=== PATIENT | male | born 1985 | race Caucasian/White ===

== ENCOUNTER 2017-02-11 09:08 | Emergency (ER) | payer OTHER ==
--- NOTE | 2017-02-11 09:53 | ED Physician Documentation ---
PD HPI URI - Stated complaint Stated Complaint: FEVER - Chief complaint Chief Complaint: Resp - History obtained from History obtained from: Patient - History of Present Illness Timing - onset: How many days ago (4-5) Timing duration: Days Timing details: Abrupt onset (onset of fever, malaise, cough, and congestion, which has persisted and worsened.), Still present Associated symptoms: Fever, Chills, Nasal congestion, Dry cough, Chest pain ( hurts anteriorly with deep coughing), Dyspnea. No: Sore throat Contributing factors: Sick contact ( and son with some cough and congestion a week prior but lasted just few days and not too ill.). No: Travel, COPD / asthma Improves by: Rest Worsened by: Activity, Breathing Similar symptoms before: Has not had sx before Recently seen: Not recently seen Review of Systems Constitutional: reports: Fever (to 103 at home), Chills, Myalgias Nose: reports: Congestion, Sinus pressure / pain. denies: Rhinorrhea / runny nose Throat: denies: Sore throat Cardiac: reports: Chest pain / pressure (with coughing). denies: Palpitations, Pedal edema, Calf pain Respiratory: reports: Dyspnea, Cough, Wheezing GI: reports: Nausea, Vomiting. denies: Diarrhea Neurologic: denies: Near syncope (but is feeling lightheaded with standing and walking today. He is tachycardic.) PD PAST MEDICAL HISTORY - Past Medical History Cardiovascular: None Respiratory: None Neuro: None Endocrine/Autoimmune: None GI: Other - Past Surgical History Past Surgical History: Yes General: Cholecystectomy, Appendectomy, Other Ortho: Other HEENT: Rhinoplasty, Other - Present Medications Home Medications: Ambulatory Orders Medication Instructions Recorded Confirmed Albuterol Sulf [Ventolin Hfa 1 - 2 puffs INH Q4HR PRN #1 inhaler 02/11/17 Inhaler] Azithromycin [Zithromax] 250 mg PO DAILY #6 tablet 02/11/17 Dexamethasone [Decadron] 4 mg PO DAILY #5 tablet 02/11/17 HYDROcod/ACETAM 5/325 [Wray 5/325] 1 tab PO Q6H PRN #15 tablet 02/11/17 Lidocaine Viscous 2% [Xylocaine 5 ml PO Q4H PRN #1 bottle 02/11/17 Viscous 2%] Ondansetron Odt [Zofran] 4 mg TL Q6H PRN #15 tablet 02/11/17 - Allergies Allergies/Adverse Reactions: Allergies Allergy/AdvReac Type Severity Reaction Status Date / Time No Known Drug Allergies Allergy Verified 12/30/15 17:08 - Social History Does the pt smoke?: Yes Smoking Status: Current every day smoker Does the pt drink ETOH?: No Does the pt have substance abuse?: No - Immunizations Immunizations are current?: Yes PD ED PE NORMAL - Vitals Vital signs reviewed: Yes - General General: Alert and oriented X 3, No acute distress, Well developed/nourished - HEENT HEENT: Pharynx benign - Neck Neck: Supple, no meningeal sign, No adenopathy - Cardiac Cardiac: RRR, No murmur, No rub - Respiratory Respiratory: Clear bilaterally (no coarse sounds nor wheezes heard) - Abdomen Abdomen: Soft, Non tender - Back Back: No CVA TTP - Derm Derm: Normal color, Warm and dry - Neuro Neuro: Alert and oriented X 3, No motor deficit, No sensory deficit, Normal speech Results - Vitals Vitals: Vital Signs - 24 hr 02/11/17 02/11/17 02/11/17 09:17 09:19 10:00 Temperature 36.7 C Heart Rate 120 H 108 H Respiratory 20 20 Rate Blood Pressure 130/90 H O2 Saturation 94 02/11/17 12:40 Temperature 37.6 C H Heart Rate 108 H Respiratory 18 Rate Blood Pressure 115/70 O2 Saturation 95 Oxygen O2 Source Room air - Rads (name of study) chest Radiology: Prelim report reviewed (mild small infiltrate left base c/w early pneumonia. ) PD MEDICAL DECISION MAKING - ED course Complexity details: considered differential (he did seem dehydrated with illness , fever, and poor PO intake due to illness. Given IV fluids and meds and he feels much better.), d/w patient Departure - Departure Disposition: 01 Home, Self Care Clinical Impression: Bronchitis, Dehydration Pneumonia Qualifiers: Pneumonia type: due to unspecified organism Laterality: left Lung location: lower lobe of lung Qualified Code(s): J18.1 - Lobar pneumonia, unspecified organism Condition: Stable Record reviewed to determine appropriate education?: Yes Instructions: ED Pneumonia Adult Follow-Up: [facility] [Provider Group] Prescriptions: Albuterol Sulf [Ventolin Hfa Inhaler] 1 - 2 puffs INH Q4HR PRN #1 inhaler PRN Reason: Shortness Of Air/Wheezing Azithromycin [Zithromax] 250 mg PO DAILY #6 tablet Dexamethasone [Decadron] 4 mg PO DAILY #5 tablet HYDROcod/ACETAM 5/325 [Wray 5/325] 1 tab PO Q6H PRN #15 tablet PRN Reason: Pain Lidocaine Viscous 2% [Xylocaine Viscous 2%] 5 ml PO Q4H PRN #1 bottle PRN Reason: Pain Ondansetron Odt [Zofran] 4 mg TL Q6H PRN #15 tablet PRN Reason: Nausea / Vomiting Comments: Drink lots of fluids. Tylenol or ibuprofen if needed for pains and fevers. Use the oral lidocaine with some antacid if needed for cough and irritation in the throat. Use hydrocodone if needed for pain or cough suppression. For the illness itself, use the albuterol inhaler 2 puffs 4 times a day for the next 7- 10 days which will reduce the coughing and improve breathing. Decadron steroid and anti-inflammatory daily for 5 more days. This often can be a viral type illness. On x-ray there was 6 suggestion of early pneumonia on the left lower area. This does have a higher chance of being bacterial and so we will add antibiotics as well Zithromax daily for 5 more days. Recheck if not improving over the next several days to week. Discharge Date/Time: 02/11/17 13:23
[2017-02-11] MEDS ORDERED: SODIUM CHLORIDE 0.9% 1,000 ML IV ONE ×2 (10:18→10:20)
[2017-02-11] MEDS ORDERED: DEXAMETHASONE 10 MG/ML VIAL IVP STA (10:19)
[2017-02-11] MEDS ORDERED: HYDROmorphone 0.5 MG/0.5 ML SYRINGE IVP STA ×2 (10:19→12:52)
[2017-02-11] MEDS ORDERED: LIDOCAINE VISCOUS 2% 15 ML UDC MM STA (10:19)
[2017-02-11] MEDS ORDERED: ONDANSETRON 4 MG/2 ML VIAL IVP STA (10:19)
[2017-02-11] MEDS ORDERED: MAG HYDROX/AL HYDROX/SIMETH 30 ML UDC PO STA (10:19)
--- NOTE | 2017-02-11 10:48 | XRAY Preliminary Report ---
Exam: XR CHEST 2 VIEW PA/LAT IMPRESSION: Findings reflect early/developing pneumonia in the left lower lobe. [facility] SITE ID: [id number]
--- NOTE | 2017-02-11 10:51 | XRAY Report ---
EXAM: CHEST RADIOGRAPHY EXAM DATE: 02/11/2017 10:32 AM. CLINICAL HISTORY: Cough and fever for 4 days. COMPARISON: None. TECHNIQUE: 2 views. FINDINGS: Lungs/Pleura: Mild patchy and reticular left basilar opacities. No focal right consolidation. No pneu mothorax or pleural effusion. Mediastinum: Heart and mediastinal contours are unremarkable. Other: Cholecystectomy clips. IMPRESSION: Findings reflect early/developing pneumonia in the left lower lobe. [facility] Referring Provider Line: [phone] SITE ID: [id number]
[2017-02-11] MEDS ORDERED: DEXAMETHASONE 10 MG/ML VIAL ONE (10:55)
[2017-02-11] MEDS ORDERED: AZITHROMYCIN INJ 500 MG in SODIUM CHLORIDE 0.9% 250 ML IV STA (10:55)
[2017-02-11] MEDS ORDERED: ONDANSETRON 4 MG/2 ML VIAL ONE (10:56)
[2017-02-11] MEDS ORDERED: LIDOCAINE VISCOUS 2% 15 ML UDC MM ONE (10:56)
[2017-02-11] MEDS ORDERED: MAG HYDROX/AL HYDROX/SIMETH 30 ML UDC ONE (10:56)
[2017-02-11] MEDS ORDERED: HYDROmorphone 1 MG/ML SYRINGE ONE ×2 (10:57→13:02)
[2017-02-11] MEDS ORDERED: WATER FOR INJECTION,STERILE 10 ML ONE (11:43)
[2017-02-11 12:43] VITALS: BP 115/70
== END 2017-02-11 13:23 | disposition home or self-care (01) ==
LOC: ED 09:08
DX: J40 Bronchitis, not specified as acute or chronic (principal); E86.0 Dehydration; F17.200 Nicotine dependence, unspecified, uncomplicated
CPT/HCPCS: 71020; 96361; 96374; 96375; 96376; 99283; 99284

== ENCOUNTER 2017-05-20 09:11 | Emergency (ER) | payer OTHER ==
[2017-05-20 09:23] VITALS: BP 128/93
--- NOTE | 2017-05-20 10:54 | XRAY Report ---
EXAM: LEFT FOOT RADIOGRAPHY EXAM DATE: 05/20/2017 10:44 AM. CLINICAL HISTORY: Left foot pain. COMPARISON: None. TECHNIQUE: 3 views. FINDINGS: Bones: No fracture or focal osseous lesion. Minimal plantar and dorsal calcaneal spurring. Joints: Normal. No subluxations. Soft Tissues: Possible plantar soft tissue swelling. No radiopaque foreign body. IMPRESSION: No acute osseous abnormality. [facility] Referring Provider Line: [phone] SITE ID: [id number]
[2017-05-20] MEDS ORDERED: INDOMETHACIN 25 MG CAPSULE PO STA (11:25)
--- NOTE | 2017-05-20 11:35 | ED Physician Documentation ---
History of Present Illness - Stated complaint Stated Complaint: L FOOT PX - Chief complaint Chief Complaint: Ext Problem - Additonal information Additional information: hx from pt 31 male long standing foot pain to forefoot worse in AM affects whichever foot was down while he was sleeping painful to bear weight - top of foot not arch like plantar fascitis no redness or swelling is [facility] and cannot be seen for a month states his HR is always fast and [facility] is aware and rx BB but cause is uncertain Review of Systems Constitutional: denies: Fever Musculoskeletal: reports: Pain with weight bearing PD PAST MEDICAL HISTORY - Past Medical History Past Medical History: Yes Cardiovascular: None Respiratory: None Neuro: None Endocrine/Autoimmune: None GI: GERD - Past Surgical History Past Surgical History: Yes General: Cholecystectomy, Appendectomy, Other Ortho: Other HEENT: Rhinoplasty, Other - Present Medications Home Medications: Ambulatory Orders Medication Instructions Recorded Confirmed Indomethacin [Indocin] 25 mg PO TIDWM PRN #20 capsule 05/20/17 - Allergies Allergies/Adverse Reactions: Allergies Allergy/AdvReac Type Severity Reaction Status Date / Time No Known Drug Allergies Allergy Verified 12/30/15 17:08 - Social History Does the pt smoke?: Yes Smoking Status: Current every day smoker Does the pt drink ETOH?: No Does the pt have substance abuse?: No - Immunizations Immunizations are current?: Yes PD ED PE NORMAL - Vitals Vital signs reviewed: Yes (HR 107 not new per pt) - Cardiac Cardiac: RRR - Respiratory Respiratory: No respiratory distress, Clear bilaterally - Extremities Extremities: Other (foot : no deformity, no erythema, no swelling, + motor and sensation, + pulse and cap refill) Results - Vitals Vitals: Vital Signs - 24 hr 05/20/17 05/20/17 09:20 10:48 Temperature 36.4 C L Heart Rate 107 H 99 Respiratory 18 14 Rate Blood Pressure 128/93 H O2 Saturation 100 96 Oxygen O2 Source Room air - Rads (name of study) foot Radiology: See rad report (no acute) Departure - Departure Disposition: 01 Home, Self Care Clinical Impression: Foot pain Qualifiers: Laterality: bilateral Qualified Code(s): M79.671 - Pain in right foot; M79.672 - Pain in left foot; M79.672 - Pain in left foot Condition: Good Prescriptions: Indomethacin [Indocin] 25 mg PO TIDWM PRN #20 capsule PRN Reason: Pain Comments: The xray is fine The foot does not look infected or like gout There is good blood flow You do not have medical problems to put you at risk for neuropathy This is not typical of plantar fasciitis. I am not really sure why it hurts I recommend you see a game artist It is also not normal to have a fast heart rate every day - I would recommend a work up to include thyroid function, a wear at home heart monitor and an ultrasound of your heart Try the indocin for pain [facility] with [facility]
== END 2017-05-20 11:48 | disposition home or self-care (01) ==
LOC: ED 09:11
DX: M79.671 Pain in right foot (principal); M79.672 Pain in left foot
CPT/HCPCS: 73630; 99283; A9270

== ENCOUNTER 2017-06-10 09:26 | Emergency (ER) | payer OTHER ==
[2017-06-10 09:40] VITALS: BP 141/89
[2017-06-10] MEDS ORDERED: BENZONATATE 100 MG CAPSULE PO STA (12:10)
[2017-06-10] MEDS ORDERED: guaiFENesin/CODEINE 5 ML UDC PO STA (12:10)
--- NOTE | 2017-06-10 12:23 | XRAY Report ---
EXAM: CHEST RADIOGRAPHY EXAM DATE: 06/10/2017 12:14 PM. CLINICAL HISTORY: Cough and high fever for several days. COMPARISON: Chest x-ray 02/11/2017. TECHNIQUE: 2 views. FINDINGS: Lungs/Pleura: No focal consolidation evident. No pleural effusion. No pneumothorax. Mildly diminished lung volumes. Peribronchial cuffing. Mediastinum: Heart and mediastinal contours are unremarkable. Other: None. IMPRESSION: 1. Peribronchial cuffing is noted, compatible with reactive airways disease or viral bronchitis. 2. No focal consolidation. 3. Prior left lower lobe airspace disease has resolved. [facility] Referring Provider Line: [phone] SITE ID: [id number]
--- NOTE | 2017-06-10 12:23 | XRAY Preliminary Report ---
Exam: XR CHEST 2 VIEW X-RAY IMPRESSION: 1. Peribronchial cuffing is noted, compatible with reactive airways disease or viral bronchitis. 2. No focal consolidation. 3. Prior left lower lobe airspace disease has resolved. [facility] SITE ID: [id number]
--- NOTE | 2017-06-10 13:09 | ED Physician Documentation ---
History of Present Illness - Stated complaint Stated Complaint: FLU LIKE SX - Chief complaint Chief Complaint: General - Additonal information Additional information: hx from pt 31 male fairly healthy to ER with 4-5 days of cough congestion pleuritic chest pain NVD daughter with same called PMD which is the [facility] but cannot be seen for 61 days his MDI is run out Review of Systems Constitutional: reports: Chills, Myalgias, Fatigue Nose: reports: Congestion Cardiac: reports: Chest pain / pressure Respiratory: reports: Cough GI: reports: Vomiting, Diarrhea Immunocompromised: denies: Immunocompromised PD PAST MEDICAL HISTORY - Past Medical History Cardiovascular: None Respiratory: None Neuro: None Endocrine/Autoimmune: None GI: GERD - Past Surgical History Past Surgical History: Yes General: Cholecystectomy, Appendectomy, Other Ortho: Other HEENT: Rhinoplasty, Other - Present Medications Home Medications: Ambulatory Orders Medication Instructions Recorded Confirmed Indomethacin [Indocin] 25 mg PO TIDWM PRN #20 capsule 05/20/17 Albuterol Sulfate [Proair Hfa 2 puffs INH Q4H PRN #1 inhaler 06/10/17 Inhaler] Benzonatate [Tessalon] 100 mg PO TID PRN #20 capsule 06/10/17 Ibuprofen [Motrin] 400 mg PO Q6H PRN #30 tablet 06/10/17 guaiFENesin/DEXTROMETHORPHAN 10 ml PO Q6H PRN #120 ml 06/10/17 [Robitussin Dm] - Allergies Allergies/Adverse Reactions: Allergies Allergy/AdvReac Type Severity Reaction Status Date / Time No Known Drug Allergies Allergy Verified 12/30/15 17:08 - Social History Does the pt smoke?: Yes Smoking Status: Current every day smoker Does the pt drink ETOH?: No Does the pt have substance abuse?: No - Immunizations Immunizations are current?: Yes PD ED PE NORMAL - Vitals Vital signs reviewed: Yes - General General: Alert and oriented X 3 - HEENT HEENT: PERRL, Ears normal, Moist mucous membranes, Pharynx benign - Neck Neck: Supple, no meningeal sign - Cardiac Cardiac: RRR - Respiratory Respiratory: Other (ronchi and coarse breath sounds bilaterally) - Abdomen Abdomen: Soft, Non tender - Derm Derm: Normal color - Neuro Neuro: Alert and oriented X 3 Results - Vitals Vitals: Vital Signs - 24 hr 06/10/17 09:38 Temperature 36.7 C Heart Rate 92 Respiratory 17 Rate Blood Pressure 141/89 H O2 Saturation 98 Oxygen O2 Source Room air - Labs Labs: Laboratory Tests 06/10/17 11:45 Influenza A (Rapid) Negative Influenza B (Rapid) Negative Influenza Types A,B Ag - - Rads (name of study) CXR Radiology: See rad report (peribronchial cuffing c/w viral process or RAD, no focal consolidation, prior pna resolved) PD MEDICAL DECISION MAKING - ED course ED course: daughter flu A + so presume pt has the same outside window for tamiflu will tx symptomatically Departure - Departure Disposition: Home, Self Care Clinical Impression: Influenza A Condition: Good Instructions: ED Flu Prescriptions: Albuterol Sulfate [Proair Hfa Inhaler] 2 puffs INH Q4H PRN #1 inhaler PRN Reason: Shortness Of Air/Wheezing Benzonatate [Tessalon] 100 mg PO TID PRN #20 capsule PRN Reason: to ease cough guaiFENesin/DEXTROMETHORPHAN [Robitussin Dm] 10 ml PO Q6H PRN #120 ml PRN Reason: Cough Ibuprofen [Motrin] 400 mg PO Q6H PRN #30 tablet PRN Reason: Pain Comments: Your flu swabs were negative - but Manny was positive for influenza A The chest xray does not show pneumonia So the treatment is primarily conservative - motrin and tylenol for fever and pain, cough meds, I refilled your inhaler The biggest danger with influenza is developing a secondary infection such as pneumonia - thankfully that has not happened at this time - but if you are worse in any way, please come back to the ER Forms: Activity restrictions
== END 2017-06-10 13:37 | disposition home or self-care (01) ==
LOC: ED 09:26
DX: J09.X2 Influenza due to identified novel influenza A virus with other respiratory manifestations (principal); F17.200 Nicotine dependence, unspecified, uncomplicated
CPT/HCPCS: 71046; 87275; 87276; 99283; A9270

== ENCOUNTER 2018-03-09 09:11 | Emergency (ER) | payer OTHER ==
[2018-03-09] MEDS ORDERED: ACETAMINOPHEN 500 MG TABLET PO STA (11:03)
--- NOTE | 2018-03-09 11:06 | ED Physician Documentation ---
PD HPI SYNCOPE - Stated complaint Stated Complaint: GLF/HEAD INJURY - Chief complaint Chief Complaint: Neuro - History obtained from History obtained from: Patient, Family - History of Present Illness Witnessed: Witnessed Timing - onset: Today Duration: Seconds Preceding symptoms: Vision changes, Light headed, Generalized weakness, Other (central chest pressure.) Associated symptoms: Headache, Vision changes, Chest pain. No: Seizure Contributing factors: Decreased PO intake Injury occurred: Fell, Head injury Similar symptoms before: No diagnosis Recently seen: Not recently seen - Additional information Additional information: 32-year-old male who has had a recent URI that is resolved is now developed syncope while at the grocery store. He states that he was standing at the check out felt a pressure in the central portion of his chest some dimming of his vision and he had a syncopal episode falling and hitting his head. His happened yesterday and he is in here today with some nausea and a headache. He states that he has had these syncopal episodes 5 times previously none of them have been in a public area and he has attributed these to not eating properly. He has had these 5 episodes in the last 6 months. Review of Systems Constitutional: denies: Fever, Chills, Myalgias, Fatigue Eyes: reports: Photophobia. denies: Decreased vision Ears: denies: Ear pain Nose: reports: Congestion. denies: Rhinorrhea / runny nose Throat: denies: Sore throat Cardiac: reports: Chest pain / pressure. denies: Palpitations, Pedal edema, Calf pain Respiratory: denies: Dyspnea, Cough, Wheezing GI: reports: Nausea. denies: Abdominal Pain, Vomiting : denies: Dysuria, Frequency Skin: denies: Rash Musculoskeletal: denies: Neck pain, Back pain, Extremity pain Neurologic: reports: Syncope, Headache, Head injury, LOC. denies: Generalized weakness, Focal weakness, Numbness PD PAST MEDICAL HISTORY - Past Medical History Past Medical History: Yes Cardiovascular: None Respiratory: None Endocrine/Autoimmune: None GI: GERD - Past Surgical History Past Surgical History: Yes General: Cholecystectomy, Appendectomy, Other Ortho: Other HEENT: Rhinoplasty, Other - Present Medications Home Medications: Ambulatory Orders Medication Instructions Recorded Confirmed Amox/Clav 875/125 [Augmentin] 1 each PO Q12H #28 tablet 03/09/18 - Allergies Allergies/Adverse Reactions: Allergies Allergy/AdvReac Type Severity Reaction Status Date / Time No Known Drug Allergies Allergy Verified 03/09/18 10:17 - Social History Does the pt smoke?: Yes Smoking Status: Current every day smoker Does the pt drink ETOH?: No Does the pt have substance abuse?: No - Immunizations Immunizations are current?: Yes PD ED PE NORMAL - Vitals Vital signs reviewed: Yes (hypertensive ) - General General: Alert and oriented X 3, No acute distress, Well developed/nourished - HEENT HEENT: PERRL, EOMI, Pharynx benign, Dentition benign, Other (minimal inflamation to the left TM with retained landmarks. There is point tenderness to the occiput on the right side. ) - Neck Neck: Supple, no meningeal sign, No bony TTP - Cardiac Cardiac: RRR, No murmur - Respiratory Respiratory: No respiratory distress, Clear bilaterally - Abdomen Abdomen: Soft, Non tender - Back Back: No CVA TTP, No spinal TTP - Derm Derm: Normal color, Warm and dry, No rash - Extremities Extremities: No deformity, No edema - Neuro Neuro: Alert and oriented X 3, lead applier 2-12 intact, No motor deficit, No sensory deficit, Normal speech Eye Opening: Spontaneous Motor: Obeys Commands Verbal: Oriented GCS Score: 15 - Psych Psych: Normal mood, Normal affect Results - Vitals Vitals: Vital Signs - 24 hr 03/09/18 03/09/18 09:40 12:31 Temperature 36.4 C L Heart Rate 77 83 Respiratory 18 18 Rate Blood Pressure 149/98 H 103/87 H O2 Saturation 98 97 Oxygen O2 Source Room air - EKG (time done) 0958 Rate: Rate (enter#) Rhythm: NSR (64) Ischemia: Normal ST segments Compare to prior EKG: Old EKG unavailable Computer interpretation: Agree with computer - Labs Labs: Laboratory Tests 03/09/18 03/09/18 03/09/18 11:18 11:18 11:18 WBC 5.5 RBC 5.08 Hgb 15.5 Hct 45.0 MCV 88.7 MCH 30.5 MCHC 34.4 RDW 13.0 Plt Count 202 MPV 9.2 Neut # (Auto) 3.0 Lymph # (Auto) 2.1 [place] # (Auto) 0.3 Eos # (Auto) 0.1 Baso # (Auto) 0.0 Absolute Nucleated RBC 0.00 Nucleated RBC % 0.1 Sodium 137 Potassium 3.7 Chloride 103 Carbon Dioxide 25 Anion Gap 9.0 BUN 9 Creatinine 1.0 Estimated GFR (MDRD) 86 L Glucose 84 Calcium 9.2 Total Bilirubin 0.9 AST 55 H ALT 147 H Alkaline Phosphatase 54 Troponin I < 0.04 Total Protein 7.9 Albumin 4.9 Globulin 3.0 Albumin/Globulin Ratio 1.6 Lipase 36 Urine Color Urine Clarity Urine pH Ur Specific [place] Urine Protein Urine Glucose (UA) Urine Ketones Urine Occult Blood Urine Nitrite Urine Bilirubin Urine Urobilinogen Ur Leukocyte Esterase Ur Microscopic Review Urine Culture Comments Ethyl Alcohol < 5.0 03/09/18 12:35 WBC RBC Hgb Hct MCV MCH MCHC RDW Plt Count MPV Neut # (Auto) Lymph # (Auto) [place] # (Auto) Eos # (Auto) Baso # (Auto) Absolute Nucleated RBC Nucleated RBC % Sodium Potassium Chloride Carbon Dioxide Anion Gap BUN Creatinine Estimated GFR (MDRD) Glucose Calcium Total Bilirubin AST ALT Alkaline Phosphatase Troponin I Total Protein Albumin Globulin Albumin/Globulin Ratio Lipase Urine Color YELLOW Urine Clarity CLEAR Urine pH 6.0 Ur Specific [place] 1.020 Urine Protein NEGATIVE Urine Glucose (UA) NEGATIVE Urine Ketones NEGATIVE Urine Occult Blood NEGATIVE Urine Nitrite NEGATIVE Urine Bilirubin NEGATIVE Urine Urobilinogen 0.2 (NORMAL) Ur Leukocyte Esterase NEGATIVE Ur Microscopic Review NOT INDICATED Urine Culture Comments NOT INDICATED Ethyl Alcohol - Rads (name of study) CT head without Radiology: Prelim report reviewed (Impression: 1. No acute intracranial abnormality. Moderate to severe paranasal sinus disease.), EMP read indepedently, See rad report PD MEDICAL DECISION MAKING - ED course Complexity details: reviewed old records, reviewed results, re-evaluated patient, considered differential, d/w patient ED course: 32 y/o male with a syncopal episode has OM on exam and a CT of the head for head injury demonstrates sphenoid sinusitis. His symptoms are better explained by this and he is administered IV rocephin & decadron and we will place him on l a course of antibiotic. Departure - Departure Disposition: 01 Home, Self Care Clinical Impression: Syncope Qualifiers: Syncope type: vasovagal syncope Qualified Code(s): R55 - Syncope and collapse Sphenoid sinusitis Qualifiers: Chronicity: acute Recurrence: not specified as recurrent Qualified Code(s): J01.30 - Acute sphenoidal sinusitis, unspecified Condition: Stable Instructions: ED Sinusitis Abx Tx, ED Syncope Vasovagal Follow-Up: Your, doctor [Other] Prescriptions: Amox/Clav 875/125 [Augmentin] 1 each PO Q12H #28 tablet Discharge Date/Time: 03/09/18 13:32
[2018-03-09 11:27] LABS: BASOPHILS % (AUTO) 0.8 %; EOSINOPHILS # (AUTO) 0.1 10^3/uL (0.0-0.7); EOSINOPHILS % (AUTO) 2.2 %; HGB - HEMOGLOBIN 15.5 g/dL (14.0-18.0); LYMPHOCYTES # (AUTO) 2.1 10^3/uL (1.5-3.5); LYMPHOCYTES % (AUTO) 37.6 %; MEAN CORPUSCULAR HEMOGLOBIN 30.5 pg (27.0-31.0); MEAN CORPUSCULAR HGB CONC 34.4 g/dL (32.0-36.0); MEAN CORPUSCULAR VOLUME 88.7 fL (80.0-94.0); MEAN PLATELET VOLUME 9.2 fL (7.4-11.4); MONOCYTES # (AUTO) 0.3 10^3/uL (0.0-1.0); MONOCYTES % (AUTO) 4.7 %; NEUTROPHILS % (AUTO) 54.7 %; PLT - PLATELET COUNT 202 10^3/uL (130-450); RED BLOOD COUNT 5.08 10^6/uL (4.70-6.10); WHITE BLOOD COUNT 5.5 x10^3/uL (4.8-10.8)
--- NOTE | 2018-03-09 11:46 | CT Report ---
Reason: syncope/head injury headache Procedure Date: 03/09/2018 Accession Number: [id number] / [id number] Procedure: CT - Head W/O CPT Code: FULL RESULT: EXAM: CT HEAD EXAM DATE: 03/09/2018 11:28 AM. CLINICAL HISTORY: Syncope/head injury headache. COMPARISON: None. TECHNIQUE: Multiaxial CT images were obtained from the foramen magnum to the vertex. Reformats: Sagittal and coronal. IV contrast: None. In accordance with CT protocol optimization, one or more of the following dose reduction techniques were utilized for this exam: automated exposure control, adjustment of mA and/or KV based on patient size, or use of iterative reconstructive technique. FINDINGS: Parenchyma: No intraparenchymal hemorrhage. No evidence of mass, midline shift, or CT findings of infarction. Loyd-white differentiation is distinct. Extraaxial Spaces: Normal for age. No subdural or epidural collections identified. Ventricles: Normal in size and position. Sinuses and Orbits: Complete opacification of the left sphenoid sinus and near complete opacification of the right sphenoid sinus. Bilateral maxillary sinus mucus retention cysts or polyps are partially imaged. No air-fluid level. The mastoid air cells are clear. Bones: No evidence of fracture or calvarial defect. Other: None. IMPRESSION: 1. No acute intracranial abnormality. 2. Moderate to severe paranasal sinus disease. [facility]
[2018-03-09 11:48] LABS: ALBUMIN 4.9 g/dL (3.2-5.5); ALBUMIN/GLOBULIN RATIO 1.6 (1.0-2.2); ALKALINE PHOSPHATASE 54 IU/L (42-121); ALT ALANINE AMINOTRANSFERASE 147 IU/L (10-60); AST ASPARTATE AMINOTRANSFERASE 55 IU/L (10-42); BILIRUBIN,TOTAL 0.9 mg/dL (0.2-1.0); BUN - BLOOD UREA NITROGEN 9 mg/dL (6-20); CALCIUM 9.2 mg/dL (8.5-10.3); CARBON DIOXIDE - CO2 25 mmol/L (21-32); CHLORIDE 103 mmol/L (101-111); GFR - MDRD 86 (>89); GLUCOSE 84 mg/dL (70-100); LIPASE 36 U/L (22-51); SODIUM 137 mmol/L (135-145); TOTAL PROTEIN 7.9 g/dL (6.7-8.2)
[2018-03-09] MEDS ORDERED: KETOROLAC 60 MG/2 ML VIAL IVP STA (12:11)
[2018-03-09] MEDS ORDERED: cefTRIAXone 1 GM in SODIUM CHLORIDE 0.9% MINIBAG 100 ML IV STA (12:11)
[2018-03-09] MEDS ORDERED: DEXAMETHASONE 10 MG/ML VIAL IVP STA (12:15)
[2018-03-09 12:33] VITALS: BP 103/87
[2018-03-09 12:53] LABS: BILIRUBIN,URINE NEGATIVE (NEGATIVE); GLUCOSE, URINE (UA) NEGATIVE (NEGATIVE); KETONES,URINE (UA) NEGATIVE (NEGATIVE); LEUKOCYTE ESTERASE, URINE NEGATIVE (NEGATIVE); NITRITE,URINE NEGATIVE (NEGATIVE); OCCULT BLOOD,URINE NEGATIVE (NEGATIVE); PROTEIN,URINE NEGATIVE (NEGATIVE); UROBILINOGEN,URINE 0.2 (NORMAL) E.U./dL (NORMAL)
[2018-03-09 12:58] LABS: CLARITY,URINE CLEAR (CLEAR)
== END 2018-03-09 13:32 | disposition home or self-care (01) ==
LOC: ED 09:11
DX: R55 Syncope and collapse (principal); J01.30 Acute sphenoidal sinusitis, unspecified; F17.200 Nicotine dependence, unspecified, uncomplicated
CPT/HCPCS: 36415; 70450; 80053; 80320; 81003; 83690; 84484; 85025; 93005; 96365; 96375; 99283; 99284; A9270; 81001; 87086

== ENCOUNTER 2019-06-29 17:32 | Outpatient (CLI) | payer OTHER | END 2019-06-29 17:33 | disposition home or self-care (01) | LOC: COV 17:32 | PROVIDERS: ATTEND Family Medicine | DX: R05 Cough (principal); R50.9 Fever, unspecified | CPT/HCPCS: 81599 ==

== ENCOUNTER 2021-06-20 09:39 | Emergency (ER) | payer OTHER ==
[2021-06-20 09:50] VITALS: BP 142/89
--- NOTE | 2021-06-20 10:07 | XRAY Report ---
PROCEDURE: Wrist 4 View RT INDICATIONS: pain/injury TECHNIQUE: 4 views of the wrist were acquired. COMPARISON: None FINDINGS: Bones: No fractures or dislocations. No suspicious bony lesions. Scaphoid view: Normal Soft tissues: No suspicious soft tissue calcifications. IMPRESSION: Normal right wrist and scaphoid. Reviewed by: Calvin Scott on 06/20/2021 10:05 AM [facility] Approved by: Calvin Scott on 06/20/2021 10:05 AM [facility] Station ID: [id number]
--- NOTE | 2021-06-20 10:15 | ED Physician Documentation ---
History of Present Illness - Stated complaint Stated Complaint: RT WRIST INJ - Chief complaint Chief Complaint: Ext Problem - History obtained from History obtained from: Patient - Additonal information Additional information: The patient comes the emergency department chief complaint of right wrist pain and swelling that started a few days ago but got worse last night. 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 He did not have any further issues with this until last night when he was given his and massage and suddenly felt a snap in his right wrist around the radial and flexor aspect. He noticed a painful, swollen area at the time and noticed still there this morning. Patient denies any previous history of breast issues. He has not had any other distinct injuries. No numbness or tingling. No weakness, but it does hurt a lot to move his wrist or to flex his digits. Review of Systems Ten Systems: 10 systems reviewed and negative Constitutional: reports: Reviewed and negative Eyes: reports: Reviewed and negative Ears: reports: Reviewed and negative Nose: reports: Reviewed and negative Throat: reports: Reviewed and negative Cardiac: reports: Reviewed and negative Respiratory: reports: Reviewed and negative GI: reports: Reviewed and negative : reports: Reviewed and negative Skin: reports: Reviewed and negative Musculoskeletal: reports: Joint pain, Joint swelling Neurologic: reports: Reviewed and negative Psychiatric: reports: Reviewed and negative Endocrine: reports: Reviewed and negative Immunocompromised: reports: Reviewed and negative PD PAST MEDICAL HISTORY - Past Medical History Cardiovascular: Hypertension Respiratory: None Neuro: Headaches, Fainting Endocrine/Autoimmune: Other GI: GERD, Hiatal hernia, Chronic diarrhea, Chronic constipation, 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 : Nocturia HEENT: Chronic sinusitis Psych: Depression, Anxiety, ADD/ADHD, Post traumatic stress disorder, Eating disorder, Other Musculoskeletal: Chronic back pain Derm: None - Past Surgical History Past Surgical History: Yes General: Cholecystectomy, Appendectomy, Gastric surgery Ortho: Other HEENT: Rhinoplasty, Other - Present Medications Home Medications: Ambulatory Orders Medication Instructions Recorded Confirmed Dextroamphetamine/Amphetamine 10 mg PO DAILY 06/20/21 06/20/21 [Adderall 10 mg Tablet] HYDROcod/ACETAM 5/325 [[place] 5/325] 1 - 2 tablet PO Q6H PRN #10 tablet 06/20/21 - Allergies Allergies/Adverse Reactions: Allergies Allergy/AdvReac Type Severity Reaction Status Date / Time No Known Drug Allergies Allergy Verified 06/20/21 09:45 - Social History Does the pt smoke?: Yes Smoking Status: Current every day smoker Does the pt drink ETOH?: No Does the pt have substance abuse?: No - Immunizations Immunizations are current?: Yes - POLST Patient has POLST: No POLST Status: Full Code PD ED PE NORMAL - Vitals Vital signs reviewed: Yes - General General: Alert and oriented X 3, No acute distress, Well developed/nourished - HEENT HEENT: Atraumatic, PERRL, EOMI, Moist mucous membranes - Neck Neck: Supple, no meningeal sign - Cardiac Cardiac: Strong equal pulses - Respiratory Respiratory: No respiratory distress - Derm Derm: Normal color, Warm and dry, No rash - Extremities Extremities: No deformity, Other (Focal tenderness and localized, masslike edema and fluctuance over the flexor aspect of the right radial wrist. Strength with flexion at the wrist, as well as all joints of the first and second digits, is intact. Good radial pulse palpable. 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 I discussed with him that I do not think the swollen area is a cyst but most likely, the patient has sprained his wrist. He probably has some underlying inflammation from the nature of his job, as evidenced by the recent achiness in his wrist for the last few days. We have placed him in a Velcro wrist splint here. We have discussed icing and symptomatic management at home. We have discussed the usual indications for fo llow-up and return. Departure - Departure Disposition: 01 Home, Self Care Clinical Impression: Right wrist sprain Qualifiers: Encounter type: initial encounter Qualified Code(s): S63.501A - Unspecified sprain of right wrist, initial encounter Condition: Stable Instructions: ED Sprain Wrist Prescriptions: HYDROcod/ACETAM 5/325 [[place] 5/325] 1 - 2 tablet PO Q6H PRN #10 tablet PRN Reason: Pain Comments: Your x-ray looks great. You have most likely sprained your wrist, though you may have some underlying inflammation from the persistent wear and tear at the wrist, related to your job. In general, sprains, which are ligament injuries, will heal on their own, given time. This usually takes 4 to 6 weeks to completely heal, though you should begin to notice progressive improvement in symptoms, beginning in the next several days. During the day, while you are at work, you may use ibuprofen and/or Tylenol to help with some of the pain. You should also ice your wrist several times a day for about 20 minutes at a time to help with the swelling and pain. A stronger pain medication has been prescribed for you for at night, should you need it, and has been electronically transmitted to [facility] pharmacy in [place]. A Velcro wrist splint has also been provided for you and may be worn as needed. If you do not notice any improvement in the condition of your wrist in the next 2 weeks, you should follow-up with your primary doctor to discuss further management.
== END 2021-06-20 10:28 | disposition home or self-care (01) ==
LOC: ED 09:39
DX: S63.501A Unspecified sprain of right wrist, initial encounter (principal); X58.XXXA Exposure to other specified factors, initial encounter; I10 Essential (primary) hypertension; F17.200 Nicotine dependence, unspecified, uncomplicated
CPT/HCPCS: 99282; 99283

== ENCOUNTER 2022-08-18 09:27 | Emergency (ER) | payer OTHER ==
[2022-08-18 09:32] VITALS: BP 132/86
--- NOTE | 2022-08-18 09:51 | XRAY Report ---
PROCEDURE: Foot 3 View RT INDICATIONS: Trauma TECHNIQUE: 3 views of the foot were acquired. COMPARISON: None. FINDINGS: Bones: No fractures or dislocations. No suspicious bony lesions. Soft tissues: No suspicious soft tissue calcifications or masses. IMPRESSION: No visualized acute fracture or dislocation. However, occult injury cannot be excluded. Recommend babita rt interval imaging follow-up in 7-10 days as clinically indicated for additional evaluation. Reviewed by: Yamileth Pena MD on 08/18/2022 9:50 AM PDT Approved by: Yamileth Pena MD on 08/18/2022 9:50 AM PDT Station ID: [id number]
--- NOTE | 2022-08-18 11:03 | ED Physician Documentation ---
PD HPI LOWER EXT INJURY - Stated complaint Stated Complaint: RT LEG PX - Chief complaint Chief Complaint: Trauma Ext - History obtained from History obtained from: Patient - Additional information Additional information: The patient comes to the emergency department chief complaint of injury to right foot yesterday after his son accidentally dropped a concrete block on it. The patient states that it was sore at first and he hoped the pain would just go away, but now, it seems worse. He states it hurts to walk on it and that it was throbbing all night last night. No other injuries or complaints. 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 HEENT: Chronic sinusitis Psych: Depression, Anxiety, ADD/ADHD, Post traumatic stress disorder, Eating disorder, Other Musculoskeletal: Chronic back pain Derm: Eczema - Past Surgical History Past Surgical History: Yes General: Cholecystectomy, Appendectomy, Gastric surgery Ortho: Other HEENT: Rhinoplasty, Other - Present Medications Home Medications: Ambulatory Orders Medication Instructions Recorded Confirmed traMADol [Ultram] 50 mg PO Q4-6H PRN #10 tablet 08/18/22 - Allergies Allergies/Adverse Reactions: Allergies Allergy/AdvReac Type Severity Reaction Status Date / Time No Known Drug Allergies Allergy Verified 08/18/22 09:29 - Social History Does the pt smoke?: Yes Smoking Status: Current every day smoker Does the pt drink ETOH?: Yes ETOH Use: None, Wine Does the pt have substance abuse?: Yes Substance Use and Type: CBD oil / Products - Immunizations Immunizations are current?: Yes - POLST Patient has POLST: No POLST Status: Full Code PD ED PE NORMAL - Vitals Vital signs reviewed: Yes - General General: Alert and oriented X 3, No acute distress, Well developed/nourished - HEENT HEENT: Atraumatic, PERRL, EOMI, Moist mucous membranes - Neck Neck: Supple, no meningeal sign - Cardiac Cardiac: Strong equal pulses - Respiratory Respiratory: No respiratory distress - Derm Derm: Warm and dry, No rash, Other (Slight contusion mid Lateral dorsum of right foot.) - Extremities Extremities: No deformity, Other (Tenderness palpation over the fifth metatarsal bone right foot. No deformity.) - Neuro Neuro: Alert and oriented X 3, No motor deficit, No sensory deficit - Psych Psych: Normal mood, Normal affect Results - Vitals Vitals: Vital Signs - 24 hr 08/18/22 09:30 Temperature 36.3 C L Heart Rate 99 Respiratory 16 Rate Blood Pressure 132/86 H O2 Saturation 96 Oxygen O2 Source Room air - Rads (name of study) Right foot x-ray Relevant Findings:: Final report received, See rad report (Negative) PD Medical Decision Making - ED course Complexity details: reviewed results, re-evaluated patient, considered differential, d/w patient, d/w family ED course: The patient was worked up with a right foot x-ray series which was negative. He had a cane, which she felt was working well for his ambulation and did not wish to have crutches or a postop shoe. He also said he had a walking boot at home. The patient was given a small prescription for some stronger analgesia at home. We have discussed timeline for expected improvement and the usual indications for follow-up and return. Departure - Departure Disposition: 01 Home, Self Care Clinical Impression: Foot contusion Qualifiers: Encounter type: initial encounter Laterality: right Qualified Code(s): S90.31XA - Contusion of right foot, initial encounter Condition: Stable Instructions: ED Contusion Foot Prescriptions: traMADol [Ultram] 50 mg PO Q4-6H PRN #10 tablet PRN Reason: Pain 5-7 Comments: Your x-rays look good. There is no evidence of any breaks or dislocations. Most likely, your pain is due to bruising and subsequent inflammation and swelling of the top of your foot where the tendons that control your toes and run through. This will cause pain not only when you extend your toes but also, when you bend your foot and the bones of the foot must flex and adjust to the positional change to absorb shock. This causes traction on the inflamed tissue and result in pain. You may take ibuprofen and use the cane, as well as propping the foot up and icing. If you are still having significant pain despite these measures, you may take the prescription pain medication. The prescription for this has been electronically transmitted to the [facility] pharmacy in [place] your request. The symptoms will likely be at peak for the next few days to week, then begin to subside. Please follow-up with your primary care physician as needed.
== END 2022-08-18 11:10 | disposition home or self-care (01) ==
LOC: ED 09:27
DX: S90.31XA Contusion of right foot, initial encounter (principal); W20.8XXA Other cause of strike by thrown, projected or falling object, initial encounter; I10 Essential (primary) hypertension; F17.200 Nicotine dependence, unspecified, uncomplicated
CPT/HCPCS: 99283